=== PATIENT | female | born 2000 | race African-American/Black ===

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

== ENCOUNTER 2019-08-22 20:31 | Emergency (ER) | payer OTHER ==
[~2019-08-22] VITALS: Ht 160 cm; Wt 68.5 kg
[2019-08-22 23:18] VITALS: BP 117/70
== END 2019-08-22 23:18 | disposition home or self-care (01) ==
LOC: ED 20:31
DX: R11.2 Nausea with vomiting, unspecified (principal); J45.909 Unspecified asthma, uncomplicated; N83.209 Unspecified ovarian cyst, unspecified side
CPT/HCPCS: Q0162